=== PATIENT | female | born 1955 | race Caucasian/White ===

== ENCOUNTER 2016-07-05 19:51 | Emergency (ER) | payer OTHER ==
[~2016-07-05] VITALS: Ht 162.6 cm; Wt 65.0 kg
[~2016-07-05 19:51] MED LIST: DIAZ10 PO; OMEP20TA39 PO; POLY119S PO; RANI150 PO
[2016-07-05 20:08] VITALS: BP 141/86; PULSE 63; RESP 16; TEMP 98.4; O2SAT 99
[2016-07-05] MEDS ORDERED: LORA-373 PO (20:14)
[2016-07-05] MEDS ORDERED: ZANT150T2 PO (20:14)
[2016-07-05] MEDS ORDERED: MIRA33504 PO (20:14)
[2016-07-05] MEDS ORDERED: OMEP20TA PO (20:14)
[2016-07-05] MEDS ORDERED: SODIUM CHLORIDE 0.9% FLUSH 10 ML FLUSH IVF PRN (20:15)
[2016-07-05 20:35] LABS: AUTOMATED NEUTROPHIL # 5.4 TH/MM3 (1.8-7.7); BASOPHIL # 0.1 TH/MM3 (0-0.2); BASOPHIL % 0.9 % (0.0-2.0); EOSINOPHIL # 0.2 TH/MM3 (0-0.4); EOSINOPHIL % 1.8 % (0.0-4.0); HEMATOCRIT 29.1 % (35.0-46.0); MEAN CELL VOLUME 69.5 FL (80.0-100.0); MEAN CORPUSCULAR HEMOGLOBIN 22.9 PG (27.0-34.0); MEAN CORPUSCULAR HGB CONC 32.9 % (32.0-36.0); MONO % 7.2 % (0.0-8.0); NEUT % 58.1 % (16.0-70.0); PLATELET COUNT 383 TH/MM3 (150-450); RED BLOOD COUNT 4.19 MIL/MM3 (4.00-5.30); RED CELL DISTRIBUTION WIDTH 17.5 % (11.6-17.2); WHITE BLOOD COUNT 9.4 TH/MM3 (4.0-11.0)
[2016-07-05 20:40] LABS: HEMO FLAGS AUTO DIFF
[2016-07-05 20:46] LABS: APTT (PATIENT) 23.8 SEC (24.3-30.1); PROTHROMBIN TIME - PATIENT 10.7 SEC (9.8-11.6)
[2016-07-05 20:52] LABS: ANION GAP 10 MEQ/L (5-15); BICARBONATE 24.8 MEQ/L (21.0-32.0); BLOOD UREA NITROGEN 13 MG/DL (7-18); CHLORIDE 105 MEQ/L (98-107); GLOMERULAR FILTRATION RATE 68 ML/MIN (>89); MAGNESIUM 2.1 MG/DL (1.5-2.5); POTASSIUM 3.4 MEQ/L (3.5-5.1); SODIUM (NA) 140 MEQ/L (136-145)
--- NOTE | 2016-07-05 20:58 | RADRPT ---
EXAM DATE/TIME: 07/05/2016 20:27 [place] COMPARISON: No previous studies available for comparison. INDICATIONS : Chest pain. MEDICAL HISTORY : None. SURGICAL HISTORY : None. ENCOUNTER: Initial ACUITY: 1 day PAIN SCORE: 10/10 LOCATION: Bilateral chest FINDINGS: A single view of the chest demonstrates the lungs to be symmetrically aerated without evidence of mas s, infiltrate or effusion. Heart size upper limits of normal. Osseous structures are intact. CONCLUSION: No evidence of acute cardiopulmonary disease. Jayme Titus MD on July 05, 2016 at 20:56 Board Certified Radiologist. This report was verified electronically.
--- NOTE | 2016-07-05 21:06 | PD ---
HPI Chief Complaint: Chest Pain Time Seen by Provider: 21:00 Travel History International Travel<30 days: No Contact w/Intl Traveler<30days: No Traveled to known affect area: No History of Present Illness HPI 60-year-old female that presents to the ED for evaluation of left-sided chest pain while driving. Per patient this started when she was driving to a store. Per patient about an hour ago. Patient states that the pain was initially pressure-like and sharp but he seems like he got better after movement. Per patient she felt better and she got to the store when she had another episode that radiated to her jaw cursor more discomfort. Per patient the pain on time was 7 out of 10. Ambulance was called and they gave patient nitroglycerin and aspirin with good relief of the symptoms. Per patient is symptomatic pain 2 out of 10. She states that overall the pain still present but not as severe. Per patient it seems like it comes and goes. She does state that she has had chest pain before but nothing cardiac. She's never had stents or history of coronary artery disease. She has a history of hypertension, diabetes. She does have a no history of smoking and she quit in the early . She denies any fall or injury. Per patient last time she had chest pain was after surgery about a year ago and had a workup that was negative. She has no PCP or registered dietetic technician at this time. She denies any recent travel. Per patient she is moving from [place]. No recent surgeries or trauma. PFSH Past Medical History Anemia: Yes Anxiety: Yes High Cholesterol: Yes Chest Pain: Yes Diminished Hearing: No Gastrointestinal Disorders: Yes (COLITIS, DIVERTICULOSIS) GERD: Yes Hypertension: Yes Ulcer: Yes Tetanus Vaccination: Unknown Influenza Vaccination: No ?: Not LMP: 2014 Menopausal: Yes : 3 Para: 2 : 1 Past Surgical History Section: Yes (X 2) Tonsillectomy: Yes Other Surgery: Yes (PARTIAL COLECTOMY) Social History Alcohol Use: Yes (Social) Tobacco Use: No Substance Use: No Allergies-Medications (Allergen,Severity, Reaction): Coded Allergies: Cipro (Verified Allergy, Unknown, 07/05/16) Flagyl (Verified Allergy, Unknown, 07/05/16) Reported Meds & Prescriptions Reported Meds & Active Scripts Active Reported Lorazepam 0.5 Mg Tab 0.5 Mg PO Q8H PRN Omeprazole 20 Mg Tab 20 Mg PO BID Miralax Powder (Polyethylene Glycol 3350 Powder) 17 Gm Powd 17 Gm PO DAILY Mix and dissolve one measuring cap-ful (17 grams) in water or juice. Zantac (Ranitidine HCl) 150 Mg Tab 150 Mg PO BID Review of Systems Except as stated in HPI: all other systems reviewed are Neg Physical Exam Narrative GENERAL: SKIN: Warm and dry. HEAD: Atraumatic. Normocephalic. EYES: Pupils equal and round. No scleral icterus. No injection or drainage. ENT: No nasal bleeding or discharge. Mucous membranes pink and moist. Tongue is midline. No uvula deviation. NECK: Trachea midline. No JVD. CARDIOVASCULAR: Regular rate and rhythm. No murmurs, S3, S4. Chest pain is not reproducible with touch. RESPIRATORY: No accessory muscle use. Clear to auscultation. Breath sounds equal bilaterally. GASTROINTESTINAL: Abdomen soft, non-tender, nondistended. Hepatic and splenic margins not palpable. MUSCULOSKELETAL: Extremities without clubbing, cyanosis, or edema. No obvious deformities. Full range of motion of the upper and lower extremities bilaterally. 2+ pulses bilaterally. NEUROLOGICAL: Awake and alert. No obvious cranial nerve deficits. Motor grossly within normal limits. Five out of 5 muscle strength in the arms and legs. Normal speech. PSYCHIATRIC: Appropriate mood and affect; insight and judgment normal. Data Data Last Documented VS Vital Signs Date Time Temp Pulse Resp B/P Pulse Ox O2 Delivery O2 Flow Rate FiO2 07/05/16 20:08 98.4 63 16 141/86 99 Orders Electrocardiogram (07/05/16 20:15) Basic Metabolic Panel (Bmp) (07/05/16 20:15) Ckmb (Isoenzyme) Profile (07/05/16 20:15) Complete Blood Count With Diff (07/05/16 20:15) Magnesium (Mg) (07/05/16 20:15) Prothrombin Time / Inr (Pt) (07/05/16 20:15) Act Partial Throm Time (Ptt) (07/05/16 20:15) Troponin I (07/05/16 20:15) Chest, Single Ap (07/05/16 20:15) Ecg Monitoring (07/05/16 20:15) Bilateral Bp Monitoring (07/05/16 20:15) Iv Access Insert/Monitor (07/05/16 20:15) Oximetry (07/05/16 20:15) Oxygen Administration (07/05/16 20:15) Sodium Chloride 0.9% Flush (Ns Flush) (07/05/16 20:15) Labs Laboratory Tests Test 07/05/16 20:15 White Blood Count 9.4 TH/MM3 Red Blood Count 4.19 MIL/MM3 Hemoglobin 9.6 GM/DL Hematocrit 29.1 % Mean Corpuscular Volume 69.5 FL Mean Corpuscular Hemoglobin 22.9 PG Mean Corpuscular Hemoglobin 32.9 % Concent Red Cell Distribution Width 17.5 % Platelet Count 383 TH/MM3 Mean Platelet Volume 8.1 FL Neutrophils (%) (Auto) 58.1 % Lymphocytes (%) (Auto) 32.0 % Monocytes (%) (Auto) 7.2 % Eosinophils (%) (Auto) 1.8 % Basophils (%) (Auto) 0.9 % Neutrophils # (Auto) 5.4 TH/MM3 Lymphocytes # (Auto) 3.0 TH/MM3 Monocytes # (Auto) 0.7 TH/MM3 Eosinophils # (Auto) 0.2 TH/MM3 Basophils # (Auto) 0.1 TH/MM3 CBC Comment AUTO DIFF Differential Comment AUTO DIFF CONFIRMED Platelet Estimate NORMAL Platelet Morphology Comment NORMAL Target Cells 1+ Ovalocytes 1+ Prothrombin Time 10.7 SEC Prothromb Time International 1.0 RATIO Ratio Activated Partial 23.8 SEC Thromboplast Time Sodium Level 140 MEQ/L Potassium Level 3.4 MEQ/L Chloride Level 105 MEQ/L Carbon Dioxide Level 24.8 MEQ/L Anion Gap 10 MEQ/L Blood Urea Nitrogen 13 MG/DL Creatinine 0.85 MG/DL Estimat Glomerular Filtration 68 ML/MIN Rate Random Glucose 91 MG/DL Calcium Level 8.8 MG/DL Magnesium Level 2.1 MG/DL Total Creatine Kinase 57 U/L Troponin I LESS THAN 0.02 NG/ML MDM Medical Decision Making Medical Screen Exam Complete: Yes Emergency Medical Condition: Yes Medical Record Reviewed: Yes Interpretation(s) EKG shows sinus rhythm with no sign of acute arrhythmia or ischemia read by me and attending. CBC & BMP Diagram 07/05/16 20:15 troponin and CKMB negative Differential Diagnosis Chest pain versus ACS versus a typical chest pain versus coronary disease Narrative Course 60-year-old female that presents to the ED for evaluation of chest pain. Patient was properly examined and was found to have signs and symptoms consistent appears to be chest pain. Unclear etiology. She does have some risk factors. Recommendations is for labs and imaging. labs and imaging showed no sign of acute disease other than slight anemia. Case was discussed with my attending who recommends admission to chest process related to her risk factors. Patient prefers not to stay. Patient was told that/cannot tell her 100% and this is not cardiac or not she requires more testing for this. She understands. She understands that if she leaves she could have a heart attack and they might be nothing we can do for her including she could have as well as severe disability. Patient prefers to go. AMA: The risks of leaving against medical advice without further evaluation treatment were discussed with the patient. These risks include cardiac dysfunction, cardiac dysrhythmia, possible heart attack, possible stroke or . The patient indicated understanding of these risks and appeared to have the capacity to make this decision. At this time patient was told that if anything changes she is to come back to the ED. She agrees and understands. Follow with PCP. Take aspirin every day. Follow with registered dietetic technician outpatient. See ED if worst. Diagnosis Primary Impression: Chest pain in adult Patient Instructions: General Instructions Additional Instructions: See ED if worst. F/u with PCP. Med/Other Pt SpecificInfo: No Meds Exist/No RX given Disposition: 07 AGAINST MEDICAL ADVICE Condition: [place]il[place]ton Collins Jul 05, 2016 21:06
[2016-07-05 21:19] LABS: OVALOCYTES 1+ (NORMAL); PLATELET ESTIMATE SMEAR NORMAL (NORMAL); PLATELET MORPHOLOGY NORMAL (NORMAL); SCAN/DIFF AUTO DIFF CONFIRMED; TARGET CELLS 1+ (NORMAL)
[2016-07-05 22:00] LABS: CREATINE KINASE 57 U/L (26-192)
--- NOTE | 2016-07-06 17:30 | EKG ---
Date Performed: 07/05/2016 Time Performed: 20:13:23 PTAGE: 60 years EKG: Sinus rhythm NORMAL ECG NO PREVIOUS TRACING DOCTOR: Brown Rothman Interpretating Date/Time 07/06/2016 17:28:19
== END 2016-07-05 22:35 | disposition left against medical advice (07) ==
LOC: NEPE 19:51
DX: R07.9 Chest pain, unspecified (principal); I10 Essential (primary) hypertension; Z79.899 Other long term (current) drug therapy
CPT/HCPCS: 71010; 80048; 82550; 83735; 84484; 85025; 85610; 85730; 93005; 99285

== ENCOUNTER 2017-04-17 18:21 | Emergency (ER) | payer OTHER ==
[~2017-04-17] VITALS: Ht 165.1 cm; Wt 63.6 kg
[~2017-04-17 18:21] MED LIST changes: -DIAZ10 PO; +LORA0.5T PO; +MIRA33504 PO; -OMEP20TA39 PO; +OMEP20TA93 PO; -POLY119S PO; -RANI150 PO; +ZANT150T2 PO
[2017-04-17 18:23] VITALS: BP 137/87; PULSE 90; RESP 17; TEMP 98.5; O2SAT 98
--- NOTE | 2017-04-17 22:24 | PD ---
Physical Exam Date Seen by Provider: Apr 17, 2017 Time Seen by Provider: 19:00 Narrative 61-year-old female presents to the emergency department stating that she believes she is having a diverticulitis flare. She states that she has been having constipation for a week despite taking multiple [id number] medications reports nausea. She does report history of multiple abdominal surgeries. Current pain is 7/10. Data Data Last Documented VS Vital Signs Date Time Temp Pulse Resp B/P (MAP) Pulse Ox O2 Delivery O2 Flow Rate FiO2 04/17/17 20:01 04/17/17 18:23 98.5 90 17 98 Room Air Orders Orders Complete Blood Count With Diff (04/17/17 18:34) Comprehensive Metabolic Panel (04/17/17 18:34) Lipase (04/17/17 18:34) Prothrombin Time / Inr (Pt) (04/17/17 18:34) Act Partial Throm Time (Ptt) (04/17/17 18:34) Urinalysis - C+S If Indicated (04/17/17 18:34) [facility] Supervised Visit with CONSTANTINE: No Narrative Course 61-year-old female presents to the emergency department for evaluation of abdominal pain, constipation. Patient is initially seen in triage. Workup is initially ordered. However, patient then comes to be states she had a bowel movement and feels much better. She left AGAINST MEDICAL ADVICE before being placed in a medical bed. Diagnosis Primary Impression: Left against medical advice Additional Impression: Constipation Qualified Codes: K59.00 - Constipation, unspecified Patient Instructions: General Instructions Departure Forms: Tests/Procedures Disposition: 07 AGAINST MEDICAL ADVICE Condition: Stable Halie GamboaP Apr 17, 2017 22:24
== END 2017-04-17 18:57 | disposition left against medical advice (07) ==
LOC: NED 18:21
DX: K59.00 Constipation, unspecified (principal); Z53.21 Procedure and treatment not carried out due to patient leaving prior to being seen by health care provider
CPT/HCPCS: 99281